=== PATIENT | male | born 1960 | race Caucasian/White ===

== ENCOUNTER → 2016-08-25 | Outpatient (CLI) | payer OTHER ==
[2016-08-25 13:19] LABS: CALCIUM 9.4 mg/dL (8.5-10.3); CREATININE 1.1 mg/dL (0.6-1.2); POTASSIUM 4.2 mmol/L (3.5-5.0)
== END ==
LOC: LAB.N 07:02
PROVIDERS: ATTEND Family Medicine
DX: Z87.898 Personal history of other specified conditions (principal)
CPT/HCPCS: 36415; 80048